=== PATIENT | female | born 1945 | race Caucasian/White ===

== ENCOUNTER 2017-03-28 08:38 | Inpatient (IN) | payer MEDICARE ==
[2017-03-26 10:04] LABS: HEMATOCRIT 37.5 % (34.6-47.8); HEMOGLOBIN 12.3 g/dL (11.7-16.4); WHITE BLOOD COUNT 5.1 x10^3/uL (3.4-10)
[2017-03-26 10:12] LABS: ASPARTATE AMINO TRANSFERASE 25 U/L (15-37); BLOOD UREA NITROGEN 15 mg/dL (7-18)
[~2017-03-28] VITALS: Ht 165.1 cm; Wt 51.3 kg
[~2017-03-28 08:38] MED LIST: ALEN70TA5 PO; ATOR20TA9 PO; CELE200C PO; CHOL10003 PO; ENOX40SY4 SQ; FLUT1DIS3 INH; FOLI0.4T2 PO; LIFI1DRO EACHEYE; MULT-500 PO; OXYC5CAP4 PO; PYRI100T2 PO; TIOT18CA INH; TRAM50TA2 PO; iron PO
[2017-03-28] MEDS ORDERED: LACTATED RINGERS 1,000 ML IV SCH (10:55)
[2017-03-28 11:00] VITALS: BP 96/68
[2017-03-28] MEDS ORDERED: BUPIVACAINE/PF-EPI 0.5% 1:200K ONE (11:00)
[2017-03-28] MEDS ORDERED: FENTANYL PF 250 MCG/5ML ONE (11:47)
[2017-03-28] MEDS ORDERED: MIDAZOLAM 1 MG/ML, 2ML ONE (11:47)
[2017-03-28] MEDS ORDERED: GLYCOPYRROLATE 0.2MG/1ML ONE (12:04)
[2017-03-28] MEDS ORDERED: CEFOTETAN 2 GM ONE (12:04)
[2017-03-28] MEDS ORDERED: DEXAMETHASONE 4 MG/ML, 5ML ONE (12:04)
[2017-03-28] MEDS ORDERED: ONDANSETRON 2MG/ML, 2ML ONE (12:04)
[2017-03-28] MEDS ORDERED: PROPOFOL 10 MG/ML, 20ML ONE (12:04)
[2017-03-28] MEDS ORDERED: NEOSTIGMINE 1 MG/ML, 10ML ONE (12:04)
[2017-03-28] MEDS ORDERED: ROCURONIUM 10 MG/ML ONE ×2 (12:04)
[2017-03-28] MEDS ORDERED: hydrALAzine 20 MG/ML, 1ML IV PRN (12:30)
[2017-03-28] MEDS ORDERED: OXYcodone 5 MG/5 ML ORAL.SOL UDC PO PRN (12:30)
[2017-03-28] MEDS ORDERED: PROMETHAZINE 25 MG/ML, 1ML IV PRN (12:30)
[2017-03-28] MEDS ORDERED: LABETALOL 5MG/ML, 20ML IV PRN (12:30)
[2017-03-28] MEDS ORDERED: MEPERIDINE/PF 25MG/0.5ML IVPush PRN (12:30)
[2017-03-28] MEDS ORDERED: HYDROmorphone 1 MG/ML, 1ML IV PRN (12:30)
[2017-03-28] MEDS ORDERED: ONDANSETRON 2MG/ML, 2ML IVPush PRN (12:30)
[2017-03-28] MEDS ORDERED: FENTANYL PF 100 MCG/2ML IV PRN (12:30)
[2017-03-28] MEDS ORDERED: INDOCYANINE GREEN 25 MG VIAL ONE (12:51)
[2017-03-28] MEDS ORDERED: MEPERIDINE/PF 25MG/0.5ML ONE (14:50)
[2017-03-28] MEDS ORDERED: DIPHENHYDRAMINE 25 MG CAPSULE PO PRN (16:30)
[2017-03-28] MEDS ORDERED: morphine SULFATE 10 MG/ML, 1ML IV PRN (16:30)
[2017-03-28] MEDS ORDERED: DIPHENHYDRAMINE 50 MG/ML, 1ML IV PRN (16:30)
[2017-03-28] MEDS ORDERED: ONDANSETRON 2MG/ML, 2ML IV PRN (16:30)
[2017-03-28] MEDS: POTASSIUM CHLORIDE 20 MEQ in SODIUM CHLORIDE 0.9% 1,000 ML IV SCH (16:43)
[2017-03-28] MEDS: KETOROLAC 30 MG/1 ML IV SCH ×2 (16:43→22:50)
[2017-03-28 19:47] VITALS: BP 78/51
[2017-03-28] MEDS: LIFITEGRAST OP SCH (21:00)
[2017-03-28] MEDS: [UNRECOGNIZED DRUG - OTHER] OP SCH (21:00)
[2017-03-28] MEDS: ATORVASTATIN 20 MG TABLET PO SCH (21:23)
[2017-03-29 00:09] VITALS: BP 91/59
[2017-03-29] MEDS: CEFOTETAN PMX 1GM/50ML 50 ML IVPB SCH ×2 (00:40→14:13)
[2017-03-29] MEDS: KETOROLAC 30 MG/1 ML IV SCH ×4 (04:10→22:30)
[2017-03-29] MEDS ORDERED: LACTATED RINGERS 1,000 ML IVBOLUS ONE (04:30)
[2017-03-29 04:31] VITALS: BP 82/51
[2017-03-29 05:06] LABS: HEMATOCRIT 33.4 % (34.6-47.8); HEMOGLOBIN 10.9 g/dL (11.7-16.4); WHITE BLOOD COUNT 10.9 x10^3/uL (3.4-10)
[2017-03-29 05:07] LABS: BLOOD UREA NITROGEN 26 mg/dL (7-18)
[2017-03-29 07:49] VITALS: BP 89/56
[2017-03-29] MEDS: ENOXAPARIN 40 MG/0.4 ML SQ SCH (08:41)
[2017-03-29] MEDS: [UNRECOGNIZED DRUG - OTHER] OP SCH ×2 (08:41→19:58)
[2017-03-29] MEDS: LIFITEGRAST OP SCH ×2 (08:41→19:58)
[2017-03-29] MEDS ORDERED: ALBUMIN HUMAN 5% 500 ML IV ONE (10:30)
[2017-03-29 13:17] VITALS: BP 81/52
[2017-03-29] MEDS: CALCIUM CARBONATE 500 MG TAB.CHEW PO PRN (16:15)
[2017-03-29] MEDS: POTASSIUM CHLORIDE 20 MEQ in SODIUM CHLORIDE 0.9% 1,000 ML IV SCH (17:35)
[2017-03-29] MEDS: ATORVASTATIN 20 MG TABLET PO SCH (19:58)
[2017-03-29 20:10] VITALS: BP 82/47
[2017-03-30 01:18] VITALS: BP 94/61
[2017-03-30] MEDS: KETOROLAC 30 MG/1 ML IV SCH ×4 (04:37→23:20)
[2017-03-30 05:25] LABS: HEMOGLOBIN 8.8 g/dL (11.7-16.4); WHITE BLOOD COUNT 6.4 x10^3/uL (3.4-10)
[2017-03-30 05:30] LABS: BLOOD UREA NITROGEN 14 mg/dL (7-18)
[2017-03-30 07:57] VITALS: BP 104/62
[2017-03-30] MEDS: LIFITEGRAST OP SCH ×2 (08:30→21:48)
[2017-03-30] MEDS: [UNRECOGNIZED DRUG - OTHER] OP SCH ×2 (08:30→21:48)
[2017-03-30] MEDS: ENOXAPARIN 40 MG/0.4 ML SQ SCH (08:30)
[2017-03-30] MEDS: OXYcodone/APAP 5/325MG TABLET PO PRN ×4 (08:37→23:20)
[2017-03-30] MEDS: CALCIUM CARBONATE 500 MG TAB.CHEW PO PRN ×2 (08:37→19:17)
[2017-03-30] MEDS: POTASSIUM CHLORIDE 20 MEQ in SODIUM CHLORIDE 0.9% 1,000 ML IV SCH (11:37)
[2017-03-30 13:45] VITALS: BP 102/55
[2017-03-30 18:36] VITALS: BP 89/57
[2017-03-30] MEDS: SODIUM CHLORIDE FLUSH 3ML SYRINGE IVF SCH (21:48)
[2017-03-30] MEDS: ATORVASTATIN 20 MG TABLET PO SCH (21:48)
[2017-03-31 01:59] VITALS: BP 94/61
[2017-03-31] MEDS: OXYcodone/APAP 5/325MG TABLET PO PRN ×4 (05:14→21:17)
[2017-03-31] MEDS: CALCIUM CARBONATE 500 MG TAB.CHEW PO PRN ×3 (05:14→21:17)
[2017-03-31] MEDS: KETOROLAC 30 MG/1 ML IV SCH ×2 (05:14→12:29)
[2017-03-31 06:40] VITALS: BP 90/53
[2017-03-31] MEDS: LIFITEGRAST OP SCH ×2 (09:00→21:00)
[2017-03-31] MEDS: [UNRECOGNIZED DRUG - OTHER] OP SCH ×2 (09:00→21:00)
[2017-03-31] MEDS: SODIUM CHLORIDE FLUSH 3ML SYRINGE IVF SCH ×2 (09:00→21:17)
[2017-03-31] MEDS: OMEPRAZOLE 20 MG CAPSULE.DR PO SCH (09:29)
[2017-03-31] MEDS: ENOXAPARIN 40 MG/0.4 ML SQ SCH (09:29)
[2017-03-31 14:08] VITALS: BP 96/61
[2017-03-31 19:58] VITALS: BP 115/69
[2017-03-31] MEDS: ATORVASTATIN 20 MG TABLET PO SCH (21:17)
[2017-04-01] MEDS: OXYcodone/APAP 5/325MG TABLET PO PRN ×2 (02:33→20:56)
[2017-04-01 03:50] VITALS: BP 136/85
[2017-04-01 05:32] LABS: BLOOD UREA NITROGEN 11 mg/dL (7-18)
[2017-04-01 05:33] LABS: HEMOGLOBIN 7.4 g/dL (11.7-16.4); WHITE BLOOD COUNT 5.7 x10^3/uL (3.4-10)
[2017-04-01 05:37] LABS: HEMATOCRIT 22.4 % (34.6-47.8)
[2017-04-01 07:28] VITALS: BP 120/70
[2017-04-01] MEDS: OMEPRAZOLE 20 MG CAPSULE.DR PO SCH (07:30)
[2017-04-01] MEDS ORDERED: OMNIPAQUE 350 MG/ML, 100ML BOTTLE ONE (08:52)
[2017-04-01] MEDS: SODIUM CHLORIDE FLUSH 3ML SYRINGE IVF SCH ×2 (09:00→21:00)
[2017-04-01] MEDS: LIFITEGRAST OP SCH ×2 (09:00→21:00)
[2017-04-01] MEDS: ENOXAPARIN 40 MG/0.4 ML SQ SCH ×2 (09:00→14:59)
[2017-04-01] MEDS: [UNRECOGNIZED DRUG - OTHER] OP SCH ×2 (09:00→21:00)
[2017-04-01 14:07] VITALS: BP 125/68
[2017-04-01 20:28] VITALS: BP 131/70
[2017-04-01] MEDS: ATORVASTATIN 20 MG TABLET PO SCH (20:52)
[2017-04-02 03:13] VITALS: BP 108/63
[2017-04-02 05:10] LABS: HEMATOCRIT 23.2 % (34.6-47.8); HEMOGLOBIN 7.7 g/dL (11.7-16.4); WHITE BLOOD COUNT 4.9 x10^3/uL (3.4-10)
[2017-04-02 08:26] VITALS: BP 107/64
[2017-04-02] MEDS: OXYcodone/APAP 5/325MG TABLET PO PRN (08:35)
[2017-04-02] MEDS: OMEPRAZOLE 20 MG CAPSULE.DR PO SCH (08:35)
[2017-04-02] MEDS: SODIUM CHLORIDE FLUSH 3ML SYRINGE IVF SCH (08:42)
[2017-04-02] MEDS: [UNRECOGNIZED DRUG - OTHER] OP SCH (09:00)
[2017-04-02] MEDS: LIFITEGRAST OP SCH (09:00)
[2017-04-02] MEDS ORDERED: OXYC1TAB7 PO (10:40)
[2017-04-02] MEDS ORDERED: OMEP-110 PO ×2 (10:42→10:43)
[2017-04-02] MEDS ORDERED: POLY17PO5 PO (10:46)
[2017-04-02] MEDS: ENOXAPARIN 40 MG/0.4 ML SQ SCH (15:00)
[2017-04-02 15:08] VITALS: BP 115/69
[2017-04-04] MEDS ORDERED: ALENDRONATE 70 MG TABLET PO SCH (06:30)
== END 2017-04-02 16:19 | disposition home or self-care (01) | DRG 329 ==
LOC: ORIP 10:11 → 4NOR 15:55
PROVIDERS: ADMIT Colon & Rectal Surgery; ATTEND Colon & Rectal Surgery
PROC: 0DBP4ZZ Excision of Rectum, Percutaneous Endoscopic Approach (ICD-10-PCS; 2017-03-28)
PROC: 0DBN8ZX Excision of Sigmoid Colon, Via Natural or Artificial Opening Endoscopic, Diagnostic (ICD-10-PCS; 2017-03-28)
PROC: 8E0W4CZ Robotic Assisted Procedure of Trunk Region, Percutaneous Endoscopic Approach (ICD-10-PCS; 2017-03-28)
PROC: 0T9B70Z Drainage of Bladder with Drainage Device, Via Natural or Artificial Opening (ICD-10-PCS; 2017-03-28)
PROC: 0DTN4ZZ Resection of Sigmoid Colon, Percutaneous Endoscopic Approach (ICD-10-PCS; principal; 2017-03-28 12:00)
DX: C19 Malignant neoplasm of rectosigmoid junction (principal); E43 Unspecified severe protein-calorie malnutrition; Z68.1 Body mass index [BMI] 19.9 or less, adult; Z90.49 Acquired absence of other specified parts of digestive tract; Z90.89 Acquired absence of other organs; Z80.9 Family history of malignant neoplasm, unspecified; M81.0 Age-related osteoporosis without current pathological fracture
CPT/HCPCS: 36415; 74177; 80048; 80053; 81001; 82040; 83735; 85025; 86850; 86900; 88305; 88309; 88331; 93005; C1729; J1100; J1650; J1885; J2175; J2250; J2405; J2704; J2710; J3010; J3480; J3490; P9045; Q9967; C1765; J7030; J7120; S0074